=== PATIENT | female | born 1945 | race Caucasian/White ===

== ENCOUNTER 2016-11-03 09:31 | Outpatient (CLI) ==
[2016-11-03 12:45] LABS: BASOPHILS % (AUTO) 0.6 % (0.0-3.0); EOSINOPHILS % (AUTO) 0.4 % (0.0-7.0); HEMATOCRIT 39.4 % (37.0-47.0); HEMOGLOBIN 13.8 g/dl (12.0-16.0); IMMATURE GRANULOCYTE % (AUTO) 0.4 % (0.0-5.0); LYMPHOCYTES # (AUTO) 0.8 K/uL (0.60-3.4); LYMPHOCYTES % (AUTO) 17.2 (10.0-50.0); MEAN CORPUSCULAR HEMOGLOBIN 31.2 pg (27.0-31.0); MEAN CORPUSCULAR VOLUME 89.1 fl (81.0-99.0); MONOCYTES # (AUTO) 0.4 K/uL (0.4-2.0); MONOCYTES % (AUTO) 7.7 (0-10); NEUTROPHILS # (AUTO) 3.6 K/ul (2.0-6.9); NEUTROPHILS % (AUTO) 73.7; PLATELET COUNT 280 10^3/uL (140-440); RED BLOOD COUNT 4.42 10^6/ul (4.20-5.40); WHITE BLOOD COUNT 4.83 K/ul (4.6-10.2)
[2016-11-03 13:13] LABS: ALBUMIN 3.6 g/dL (3.4-5.0); ALBUMIN/GLOBULIN RATIO 1.2; ANION GAP 15.4; BILIRUBIN,TOTAL 0.45 mg/dL (0.00-1.20); BUN/CREATININE RATIO 9.09; CALCIUM 9.3 mg/dL (8.2-10.2); CHOL/HDL RATIO 2.1 (4.5-5.5); CREATININE 0.77 mg/dL (0.60-1.30); POTASSIUM 3.4 mmol/L (3.5-5.10); TOTAL PROTEIN 6.6 g/dL (5.8-8.1)
== END 2016-11-03 09:32 | disposition home or self-care (01) ==
LOC: LAB 09:31
PROVIDERS: ATTEND Emergency Medicine
DX: E03.9 Hypothyroidism, unspecified (principal); I10 Essential (primary) hypertension
CPT/HCPCS: 36415; 80053; 80061; 84443; 85025

== ENCOUNTER 2017-02-05 12:27 | Outpatient (CLI) | END 2017-02-05 12:28 | disposition home or self-care (01) | LOC: LAB 12:27 | PROVIDERS: ATTEND Emergency Medicine | DX: E03.9 Hypothyroidism, unspecified (principal) | CPT/HCPCS: 36415; 84443 ==

== ENCOUNTER 2017-05-18 15:03 | Outpatient (CLI) | END 2017-05-18 15:04 | disposition home or self-care (01) | LOC: LAB 15:03 | PROVIDERS: ATTEND Emergency Medicine | DX: E03.9 Hypothyroidism, unspecified (principal); I10 Essential (primary) hypertension; E78.5 Hyperlipidemia, unspecified | CPT/HCPCS: 36415; 80053; 80061; 84443; 85025 ==

== ENCOUNTER 2017-12-16 09:22 | Outpatient (CLI) | END 2017-12-16 09:23 | disposition home or self-care (01) | LOC: RHC-LAB 09:22 | PROVIDERS: ATTEND Emergency Medicine | DX: E03.9 Hypothyroidism, unspecified (principal); I10 Essential (primary) hypertension; M81.0 Age-related osteoporosis without current pathological fracture | CPT/HCPCS: 36415; 80053; 80061; 84443; 85025 ==

== ENCOUNTER 2018-02-19 09:53 | Outpatient (CLI) | END 2018-02-19 09:54 | disposition home or self-care (01) | LOC: RHC-LAB 09:53 | PROVIDERS: ATTEND Nurse Practitioner Family | DX: E03.9 Hypothyroidism, unspecified (principal) | CPT/HCPCS: 36415; 84443 ==

== ENCOUNTER 2018-08-17 07:55 | Outpatient (CLI) | END 2018-08-17 07:56 | disposition home or self-care (01) | LOC: RHC-LAB 07:55 | PROVIDERS: ATTEND Nurse Practitioner Family | DX: G30.1 Alzheimer's disease with late onset (principal); E78.5 Hyperlipidemia, unspecified; E03.9 Hypothyroidism, unspecified | CPT/HCPCS: 36415; 80053; 80061; 84443; 85025 ==

== ENCOUNTER 2018-09-20 08:17 | Outpatient (CLI) | END 2018-09-20 08:18 | disposition home or self-care (01) | LOC: RHC-LAB 08:17 | PROVIDERS: ATTEND Nurse Practitioner Family | DX: E03.9 Hypothyroidism, unspecified (principal) | CPT/HCPCS: 36415; 84443 ==

== ENCOUNTER 2022-10-14 17:22 | Inpatient (IN) ==
--- NOTE | 2022-10-14 17:44 | ED.PDOC ---
General ED Provider: Dr. RAMO REINOSO DO Chief Complaint: Fall Stated Complaint: Tre is a 76 yo F ehre for presumed fall 1 week ago Patient afebrile and vitally stable Hx from EMS, Niece she lives with Patient unable to provide history due to advanced dementia R shoudler and humeruous brusing, R elbow weeping abrasion Family requesting imaging and return home Time Seen by Provider: 10/14/22 17:28 Information Source: Patient Primary Care Provider: ROMIE WALKER APRN Nursing and Triage Documentation Reviewed and Agree: Yes Does patient meet sepsis criteria?: No System Inflammatory Response Syndrome: Not Applicable Sepsis Protocol: For patient's 13 years and over: Temp is 96.8 and below OR 101 and greater Pulse >90 BPM Resp >20/minute Acutely Altered Mental Status Are patient's symptoms suggestive of a new infection, such as: -Pneumonia -Skin, Soft Tissue -Endocarditis -UTI -Bone, Joint Infection -Implantable Device -Acute Abdominal Infection -Wound Infection -Meningitis -Blood Stream Catheter Infection -Unknown Review of Systems Review Of Systems Constitutional: Reports Other (Unable to obtain due to dementia) All Other Systems: Reviewed and Negative [facility] Medical History Hyperlipidemia E78.5 - Hyperlipidemia, unspecified (ICD-10) Hypertension I10 - Essential (primary) hypertension (ICD-10) Hypothyroidism E03.9 - Hypothyroidism, unspecified (ICD-10) Social History Smoking and tobacco status: Former smoker Tobacco: How many years used: 20 Passive smoking exposure: Yes How long ago did patient quit smoking: approx 30 years Second hand smoke exposure: Yes Smoking risk assessment performed: No Alcohol intake: never Counseling given: No Substance use type: does not use Mireya/adventist: None Special mireya needs: No Agree to transfusion: Yes Adopted: Yes Caregiver/support person: Yes Foster care: No Household members: family Housing: house Highest education level completed: high school graduate Financial difficulty paying for basics: not applicable service: No penitentiary: No Current occupational status: retired Pets and animals: Yes History of recent travel: No Sexually active: No Do you think of yourself as: straight/heterosexual Current gender identity: female Seatbelt use: always Helmet use: No Drives intoxicated or rides with intoxicated courier delivery driver: No Water heater temperature set < 120 degrees: Yes Working smoke detector in home: Yes Fire extinguisher in home: Yes Carbon monoxide detector in home: Yes Firearms in home: Yes Surgical History History of endoscopic gastrointestinal surgery Z98.890 - Other specified postprocedural states (ICD-10) History of musculoskeletal system surgery Z98.890 - Other specified postprocedural states (ICD-10) History of tubal ligation Z98.51 - Tubal ligation status (ICD-10) Status post cholecystectomy Z90.49 - Acquired absence of other specified parts of digestive tract (ICD- 10) Female Reproductive History Menstrual Hx Hysterectomy: Yes Hx Tubal Ligation: No Physical Exam Physical Exam Appearance: Reports Well-appearing, Well-nourished and Obese Ill-appearing: Not Applicable Pain Distress: Not Applicable Eyes: Reports GEOFF, EOMI, Conjunctiva clear and Other (No hyphema) ENT: Reports Ears normal, Nose normal and Other (No septal hematoma) Neck: Supple Respiratory: Reports Airway patent and Breath sounds clear; Denies Crackles or Rhonchi Cardiovascular: Reports RRR and Pulses normal GI/: Reports Soft, Nontender and Other (central abdominal obeisty) Musculoskeletal: Reports Normal strength and Other (R shoulder decreased arom/prom due to pain, radial aa 2+/3 BL) Skin: Reports Warm, Dry and Other (eccymosis to R hsoulder and humerous, R lateral elbow with weeping abrasion) Neurological: Reports Sensation intact and Motor intact Psychiatric: Reports Other (unable to assess due to dementia) Interpretation Radiology Interpretation Radiology Interpretation By: ED Physician Radiology Results: Negative Exam Interpreted: Other (R elbow) Xray Comments: No gross fracture or dislocation Radiology Interpretation By: ED Physician Radiology Results: Positive Exam Interpreted: Other (R shoulder) Xray Comments: surgical neck fracture noted Critical Care Note Critical Care Note Total Critical Care Time (mins): 35 Course Course 10/14/22 17:40 10/14/22 17:40 Orders, Labs, Meds: Lab Review 10/14/22 10/14/22 17:35 17:40 WBC 8.45 RBC 3.24 L Hgb 9.7 L Hct 28.4 L MCV 87.7 MCH 29.9 MCHC 34.2 RDW Coeff of Valdemar 13.0 Plt Count 229 Immature Gran % (Auto) 0.7 Neut % (Auto) 85.1 H Lymph % (Auto) 4.7 L Adams % (Auto) 9.5 Eos % (Auto) 0.0 Baso % (Auto) 0.0 Neut # (Auto) 7.2 H Lymph # (Auto) 0.4 L Adams # (Auto) 0.8 Eos # (Auto) 0.0 Baso # (Auto) 0.0 Immature Gran # (Auto) 0.1 Hypochromasia 1+ Anisocytosis 2+ Microcytosis 1+ Sodium 134.7 Potassium 3.07 L Chloride 100.9 Carbon Dioxide 28.6 Anion Gap 8.27 BUN 18.1 H Creatinine 0.50 L Estimated GFR (MDRD) 119.00 BUN/Creatinine Ratio 36.20 Glucose 99.5 Lactic Acid 0.75 Calcium 8.11 L Total Bilirubin 0.86 AST 26.2 ALT 15.5 Alkaline Phosphatase 75.4 Total Protein 6.52 Albumin 3.56 Globulin 2.96 Albumin/Globulin Ratio 1.20 TSH 2.340 Free T4 1.49 Urine Color Yellow Urine Clarity Clear Urine pH 6.5 Ur Specific Crandall >=1.030 Urine Protein 1+ H Urine Glucose (UA) Negative Urine Ketones Negative Urine Blood Negative Urine Nitrite Negative Urine Bilirubin Negative Urine Urobilinogen 0.2 Ur Leukocyte Esterase Negative Ur Squamous Epith Cells Not Reportable Urine Mucus 1+ Orders Category Date Time Status OBSERVATION [PLACE PATIENT OBSERVATION] .TO [facility] ADMISSION 10/14/22 20:10 Active (MONITORED BED) NPO REMINDER: IMAGING ONCE CARE 10/14/22 17:29 Completed STRAIGHT CATH INSERTION ONCE CARE 10/14/22 17:28 Active TELEMETRY MONITORING TELE CARE 10/14/22 20:10 Active REGULAR DIET DIETARY 10/15/22 Breakfast Ordered C collar [ED IMMOBILIZATION] .ONCE EMERGENCY 10/14/22 19:42 Active CODE [ED CODE STATUS] .ONCE EMERGENCY 10/14/22 20:10 Active CBC W/ AUTO DIFF Stat LAB 10/14/22 17:40 Completed CBC W/ AUTO DIFF Stat LAB 10/15/22 05:00 Ordered CMP [COMPREHENSIVE METABOLIC PANEL] Stat LAB 10/14/22 17:40 Completed CMP [COMPREHENSIVE METABOLIC PANEL] Stat LAB 10/15/22 05:00 Ordered FREE T4 (FREE THYROXINE) Stat LAB 10/14/22 17:40 Completed LACTIC ACID Stat LAB 10/14/22 17:40 Completed MAGNESIUM Stat LAB 10/15/22 05:00 Ordered RBC MORPHOLOGY Stat LAB 10/14/22 17:40 Completed THYROID STIMULATING HORMONE Stat LAB 10/14/22 17:40 Completed UA [URINALYSIS C & S IF INDICATED] Stat LAB 10/14/22 17:35 Completed Acetaminophen [Tylenol] Meds 10/14/22 20:18 Ordered 650 mg RC ONCE PRN Enoxaparin Sodium [Lovenox] Meds 10/14/22 20:17 Discontinued 40 mg SUBCUT ONCE STA Fentanyl Citrate/Pf [Sublimaze] Meds 10/14/22 20:16 Discontinued 25 mcg IV ONCE ONE Fentanyl Citrate/Pf [Sublimaze] Meds 10/14/22 20:18 Ordered 25 mcg IVP ONCE PRN Magnesium Sulfate Bag [Magnesium Sulfate 1 gm/100 ml Meds 10/14/22 19:01 Discontinued D5w] 1 gm in 100 ml IV ONCE Ondansetron HCl/Pf [Zofran 4 mg/2 ml] Meds 10/14/22 20:18 Ordered 4 mg IVP PRN PRN Potassium Chloride in 0.9%NaCl [Sodium Chloride 0.9%- Meds 10/14/22 19:01 Active KCl 40Meq] 1,000 ml IV 250 mls/hr CT CERVICAL SPINE W/O CONTRAST Stat RADS 10/14/22 17:[address] CHEST PE PROTOCOL Stat RADS 10/14/22 17:[address] HEAD W/O CONTRAST Stat RADS 10/14/22 17:28 Completed ELBOW, RIGHT MIN 3 VIEWS Stat RADS 10/14/22 17:28 Completed SHOULDER, RIGHT MIN 2V Stat RADS 10/14/22 17:28 Completed Medications Generic Name Dose Route Start Last Admin Trade Name Freq PRN Reason Stop Dose Admin Acetaminophen 650 mg 10/14/22 20:18 Acetaminophen 650 Mg Supp.Rect RC ONCE PRN pain Fentanyl Citrate 25 mcg 10/14/22 20:18 Fentanyl 50 Mcg/Ml Sdv IVP ONCE PRN pain Potassium Chloride/Sodium Chloride 1,000 mls @ 250 mls/hr 10/14/22 19:01 10/14/22 19:12 Sodium Chloride 0.9%-Kcl 40meq IV 10/14/22 23:00 250 mls/hr .Q4H STA Administration Ondansetron HCl 4 mg 10/14/22 20:18 Ondansetron Hcl/Pf 4 Mg/2 Ml Sdv IVP PRN PRN pain Discontinued Medications Generic Name Dose Route Start Last Admin Trade Name Freq PRN Reason Stop Dose Admin Enoxaparin Sodium 40 mg 10/14/22 20:17 Enoxaparin Sodium 40 Mg/0.4 Ml Syr SUBCUT 10/14/22 20:18 ONCE STA Fentanyl Citrate 25 mcg 10/14/22 20:16 Fentanyl 50 Mcg/Ml Sdv IV 10/14/22 20:17 ONCE ONE Magnesium Sulfate/Dextrose 1 gm in 100 mls @ 100 mls/hr 10/14/22 19:01 10/14/22 19:12 Magnesium Sulfate 1 Gm/100 Ml D5w IV 10/14/22 20:00 100 mls/hr ONCE ONE Administration Vital Signs: Temp Pulse Resp BP Pulse Ox 10/14/22 17:26 99.0 F 85 16 148/74 H 93 L MDM: Patient is a 76 yo F here for presumed fall and bruising to R shoulder and arm Patient afebrile and vitally stable Hx from daughter and EMS chart review by me Exam concerning for bruising and pain to R shoulder Consults to Radiology and hospitalist I discussed Patients fall, R closed impacted humerus fracture, unstable nondisplaced C2 fracture, old R wrist fractures and chronic incidental findings from imaging After risks benefits and alternatives discussion daughter elects DNR/DNI and admission for low potassium, pain control and SNF placement if possible She understands the C spine fracture is life threatening, although no bleeding and non displaced and could be older, daughter (POA) has goals for comfort in care, she does not want mother going through the stress of hospital transfer, surgery, she has end stage dementia it will upset her and she does not want her to have surgery due to the burden of healing and stress mother will go through Patient to be admitted to Hospitalist team WDX: Fall, C2 pedicle Fx BL, R impacted humerus fracture, incidental old chronic fractures, hypokalemia acute condition high complexity DDX: I considered shock, sepsis, non accidental trauma but these are less likely SDOH:patient insured with PCP and family support Daughter would like conservative comfort care, avoiding surgery and options for SNF placement if too weak or injured to return home We discussed all findings Patient admitted stable Daughter does not want arm splinted or C collar after seeing mother struggle to rip them off She knows her mother may get worse without appropriate care for these traumatic injuries, but I agree she is a poor surgical candidate and we will honor the families wishes. Discharge Plan Discharge Patient Disposition: PLACED OBSERVATION Discharge Problem: Fall, Dementia, Fracture of right shoulder, Closed fracture of C2 vertebra, Acute hypokalemia Did you review [place] SCARR[place] for ALL controlled substances?: Not Applicable ED Provider: RAMO REINOSO Condition: Serious Physician Progress Note: []
[2022-10-14 17:48] LABS: HEMATOCRIT 28.4 % (37.0-47.0); HEMOGLOBIN 9.7 g/dl (12.0-16.0); IMMATURE GRANULOCYTE # (AUTO) 0.1 (0.0-1.0); IMMATURE GRANULOCYTE % (AUTO) 0.7 % (0.0-5.0); LYMPHOCYTES # (AUTO) 0.4 K/uL (0.60-3.4); LYMPHOCYTES % (AUTO) 4.7 (10.0-50.0); MEAN CORPUSCULAR HEMOGLOBIN 29.9 pg (27.0-31.0); MEAN CORPUSCULAR HGB CONC 34.2 (31.8-35.4); MEAN CORPUSCULAR VOLUME 87.7 fl (81.0-99.0); MONOCYTES # (AUTO) 0.8 K/uL (0.4-2.0); MONOCYTES % (AUTO) 9.5 (0-10); NEUTROPHILS # (AUTO) 7.2 K/ul (2.0-6.9); NEUTROPHILS % (AUTO) 85.1 % (42.2-75.2); PLATELET COUNT 229 10^3/uL (140-440); RED BLOOD COUNT 3.24 10^6/ul (4.20-5.40); WHITE BLOOD COUNT 8.45 K/ul (4.6-10.2)
[2022-10-14 18:00] LABS: BILIRUBIN,URINE Negative (NEGATIVE); CLARITY,URINE Clear (CLEAR); COLOR,URINE Yellow (YELLOW); GLUCOSE, URINE (UA) Negative (NEGATIVE); KETONES,URINE Negative (NEGATIVE); LEUKOCYTE ESTERASE ,URINE Negative (NEGATIVE); NITRITE,URINE Negative (NEGATIVE); PH,URINE 6.5 (5-9); PROTEIN,URINE 1+ (NEGATIVE); URINE, BLOOD Negative (NEGATIVE); UROBILINOGEN,URINE 0.2 (0.2)
[2022-10-14 18:03] LABS: ALANINE AMINOTRANSFERASE 15.5 U/L (0-35); ALBUMIN 3.56 g/dL (3.5-5.0); ALKALINE PHOSPHATASE 75.4 U/L (53-141); ASPARTATE AMINO TRANSFERASE 26.2 U/L (14-36); BILIRUBIN,TOTAL 0.86 mg/dL (0.2-1.3); BLOOD UREA NITROGEN 18.1 mg/dL (7-17); CALCIUM 8.11 mg/dL (8.4-10.2); CARBON DIOXIDE 28.6 mmol/L (22-30.0); CHLORIDE 100.9 mmol/L (98-107); CREATININE 0.5 mg/dL (0.60-1.30); GLUCOSE 99.5 mg/dL (74-106); POTASSIUM 3.07 mmol/L (3.5-5.1); SODIUM 134.7 mmol/L (134.5-145); TOTAL PROTEIN 6.52 g/dL (6.3-8.2)
[2022-10-14 18:05] LABS: MUCUS,URINE 1+ (NOT PRESENT)
[2022-10-14 18:14] LABS: ANISOCYTOSIS 2+ (NOT PRESENT); HYPOCHROMASIA 1+ (NOT PRESENT); MICROCYTOSIS 1+ (NOT PRESENT)
--- NOTE | 2022-10-14 18:14 | DI ---
EXAM: RIGHT SHOULDER THREE VIEWS HISTORY: Fall COMPARISON: Right shoulder 07/14/2022 FINDINGS: There is stable widening of the AC joint. There is an acute surgical neck fracture which is mildly impacted. Severe degenerative changes noted about the glenohumeral joint. Several linear bony bodies lateral to the acromion may represent avulsion fractures IMPRESSION: Impacted surgical neck fracture with severe degenerative changes as described.
--- NOTE | 2022-10-14 18:16 | DI ---
EXAM: RIGHT ELBOW FOUR VIEWS HISTORY: Fall COMPARISON: None. FINDINGS: There is no acute fracture, dislocation or joint effusion There is questionable subacute distal radial fracture which is incompletely visualized. IMPRESSION: No acute elbow fracture. Questionable subacute distal radial fracture
[2022-10-14 18:34] LABS: THYROID STIMULATING HORMONE 2.34 uIU/L (0.465-4.68)
[2022-10-14] MEDS ORDERED: SODIUM CHLORIDE 0.9%-KCL 40MEQ 1,000 ML IV STA (19:01)
[2022-10-14] MEDS ORDERED: MAGNESIUM SULFATE 1 GM/100 ML D5W 1 GM/100 ML BAG IV ONE (19:01)
--- NOTE | 2022-10-14 19:31 | CT ---
EXAM: CT OF THE HEAD WITHOUT CONTRAST. HISTORY: Fall. Dementia. COMPARISON: 08/10/2020 TECHNIQUE: Contiguous axial images at 5 mm intervals were obtained from the base of the skull to the vertex of the calvarium. No contrast was given. FINDINGS: Extra-axial spaces: The CSF contiaing spaces are diffusely enlarged consistent with atrophy.There ar e no extraaxial fluid collections. Hemorrhage: None Cerebral Parenchyma: There are hypodensities in the periventricular white matter and deep white matte r. These findings are non-specific but can be seen with chronic ischemic changes from small vessel d isease.Zhu-white differentiation is normal. Cerebellum: Mild atrophic changes.. Masses/Mass effect: None. There is no midline shift. Vasculature: Calcifications are seen in the carotid and vertebral arteries. Osseus Structures: There is sclerosis of the mastoid air cells right greater left. Soft tissues/Sinuses: Normal. IMPRESSION: 1. Chronic age related changes. 2. No acute intracranial hemorrhage. All CT scans are performed using dose optimization techniques as appropriate to the performed exam an d include at least one of the following: Automated exposure control, adjustment of the mA and/or kV according t o size, and the use of iterative reconstruction technique.
--- NOTE | 2022-10-14 19:48 | CT ---
EXAM: CTA CHEST HISTORY: Fall with right lateral bruising CT scan chest 08/10/2020 None. FINDINGS: Postcontrast helical imaging was obtained through the thorax utilizing 2.5-mm collimation. Sagittal and coronal reconstructions were imaged reviewed. 3-D volume rendered images are submitte d.. The thoracic inlet is unremarkable. The cardiac silhouette is enlarged without pericardial effus ion. There is coronary artery calcification. There is no hilar or mediastinal lymphadenopathy. The re is no evidence of pulmonary embolus. Bibasilar atelectasis. Stable wedge compression deformity a t T10 with retropulsion. Stable right adrenal mass measuring 8.6 x 3.6 cm.. There is diverticulosis without diverticulitis. There is a comminuted displaced surgical neck fracture on the right. Likel y healing fracture involving the body of the scapula on the right. IMPRESSION: Stable cardiomegaly. No evidence of pulmonary embolus. Bibasilar atelectasis. Stable wedge compression deformity at T10. Right-sided surgical neck fracture of the humerus.. Likely healing fracture involving the body of the right scapula Stable large right adrenal mass. All CT scans are performed using dose optimization techniques as appropriate to the performed exam an d include at least one of the following: Automated exposure control, adjustment of the mA and/or kV according t o size, and the use of iterative reconstruction technique.
--- NOTE | 2022-10-14 19:48 | CT ---
EXAM: CT OF CERVICAL SPINE WITHOUT CONTRAST History: Fall, dementia Comparison: CT 08/10/2020 Technique: Axial scans acquired at 2 mm slice thicknesses. Coronal and sagittal sequence completed FINDINGS Sagittal sequence shows straightening of the cervical curvature. There is 1.7 mm anterolisthesis C2 on C3. There is minimal C4-C5, moderate C5-C6, minimal C6-C7 disc space narrowing. Coronal sequence shows normal alignment. Coronal sequence shows mild levocurvature upper to mid cervical spine. Occipital -atlantal joints a ppear intact. Axial scans shows degenerate change of the facet joints There are minimally displaced fractures of the right pedicle and left pedicle of C2, axial image 27, series 3 Multilevel posterior disc bulge osteophyte. Central spinal canal stenosis most severe C4-C5 and C5-C 6 level, stable compared prior exam. Multilevel chronic neural foraminal stenosis. Moderate to severe bilateral neural foraminal stenosis C4-C5 and C5-C6 level, stable compared prior exam. Impression 1. Multilevel degenerate changes of facet joints with multilevel foraminal stenosis most severe C4-C 5 and C5-C6 level. 2. Central spinal canal stenosis C4-C5 and C5-C6 level. 3. Interval change with minimally displaced fracture of the right pedicle and left pedicle of C2, be st defined on axial image 27, series 3. There is no severe prevertebral soft tissue swelling. No o bvious acute disc protrusion or hematomyelia. The facet joint alignment appears normal. Results of CT findings were discussed by phone at 7:40 p.m. with ER staff, Dr. Chu All CT scans are performed using dose optimization techniques as appropriate to the performed exam an d include at least one of the following: Automated exposure control, adjustment of the mA and/or kV according t o size, and the use of iterative reconstruction technique.
[2022-10-14] MEDS ORDERED: SUBLIMAZE IV ONE (20:16)
[2022-10-14] MEDS ORDERED: LOVENOX SUBCUT STA (20:17)
[2022-10-14] MEDS ORDERED: TYLENOL RC PRN (20:18)
[2022-10-14] MEDS ORDERED: ZOFRAN 4 MG/2 ML IVP PRN ×2 (20:18→22:29)
[2022-10-14] MEDS ORDERED: SUBLIMAZE IVP PRN (20:18)
[2022-10-14 21:19] VITALS: BMI 23.8
[2022-10-14] MEDS ORDERED: MORPHINE 2 MG/ML SYRINGE IVP PRN (22:27)
[2022-10-14] MEDS ORDERED: FLEXERIL PO PRN (22:27)
[2022-10-14] MEDS ORDERED: MOBIC PO PRN (23:15)
[2022-10-14] MEDS ORDERED: ZOCOR PO SCH (23:30)
[2022-10-14] MEDS ORDERED: DRISDOL PO SCH (23:30)
[2022-10-14] MEDS: DESYREL PO PRN (23:47)
[2022-10-15 05:08] LABS: BASOPHILS % (AUTO) 0.3 % (0.0-3.0); EOSINOPHILS % (AUTO) 0.1 % (0.0-7.0); HEMATOCRIT 27.2 % (37.0-47.0); HEMOGLOBIN 9.1 g/dl (12.0-16.0); IMMATURE GRANULOCYTE # (AUTO) 0.1 (0.0-1.0); IMMATURE GRANULOCYTE % (AUTO) 0.7 % (0.0-5.0); LYMPHOCYTES # (AUTO) 0.4 K/uL (0.60-3.4); LYMPHOCYTES % (AUTO) 4.9 (10.0-50.0); MEAN CORPUSCULAR HEMOGLOBIN 29.6 pg (27.0-31.0); MEAN CORPUSCULAR HGB CONC 33.5 (31.8-35.4); MEAN CORPUSCULAR VOLUME 88.6 fl (81.0-99.0); MONOCYTES # (AUTO) 0.8 K/uL (0.4-2.0); MONOCYTES % (AUTO) 10.3 (0-10); NEUTROPHILS # (AUTO) 6.2 K/ul (2.0-6.9); NEUTROPHILS % (AUTO) 83.7 % (42.2-75.2); PLATELET COUNT 224 10^3/uL (140-440); RED BLOOD COUNT 3.07 10^6/ul (4.20-5.40)
[2022-10-15 05:22] LABS: ALANINE AMINOTRANSFERASE 14.8 U/L (0-35); ALBUMIN 3.31 g/dL (3.5-5.0); ALKALINE PHOSPHATASE 72.7 U/L (53-141); ASPARTATE AMINO TRANSFERASE 25.2 U/L (14-36); BILIRUBIN,TOTAL 0.79 mg/dL (0.2-1.3); BLOOD UREA NITROGEN 16.5 mg/dL (7-17); CALCIUM 7.99 mg/dL (8.4-10.2); CARBON DIOXIDE 26.9 mmol/L (22-30.0); CHLORIDE 104.7 mmol/L (98-107); CREATININE 0.48 mg/dL (0.60-1.30); GLUCOSE 98.7 mg/dL (74-106); MAGNESIUM 2.47 mg/dL (1.6-2.3); POTASSIUM 3.16 mmol/L (3.5-5.1); SODIUM 135.2 mmol/L (134.5-145); TOTAL PROTEIN 6.2 g/dL (6.3-8.2)
[2022-10-15] MEDS: SYNTHROID PO SCH (05:36)
[2022-10-15] MEDS ORDERED: ZYRTEC PO SCH (09:00)
[2022-10-15] MEDS: HYDROCHLOROTHIAZIDE PO SCH (09:37)
[2022-10-15] MEDS: ZOLOFT PO SCH ×2 (09:39→09:40)
[2022-10-15] MEDS: PROTONIX PO SCH (09:40)
[2022-10-15] MEDS: K-DUR PO SCH ×2 (09:40→19:00)
[2022-10-15] MEDS: BUSPAR PO SCH ×3 (09:40→20:31)
--- NOTE | 2022-10-15 10:33 | PCM ---
Date of Service Date Seen by Provider: 10/15/22 Time Seen by Provider: 09:00 Admit Day/Time Admission Date: 10/14/22 Reason for Admission Chief Complaint: HYPOKALEMIA Hospital Provider Hospital Provider: CHRISTEL ALCARAZ, [facility] [place] Primary Care Physician: ROMIE WALKER APRN History of Present Illness History of Present Illness: 76 yo female with pmh of dementia presented to the ER via EMS from home following a fall. Daughter reports that patient has been falling frequently over the last couple weeks. The last fall was over the weekend in the middle of the night and the patient was found in the floor. She was not brought to the hospital at that time and was not complaining of pain. Over the last couple days, the patient's pain has worsening and bruising developed to the R arm and shoulder. She was found to have a R arm impacted surgical neck fracture as well as a C2 fracture. Daughter reported to ER provider that patient is not a surgical candidate and did not wish for anything to be done. She is a DNR/DNI. Daughter also was instructed that the arm needed splinted and the neck required a C-collar. She denied use of both devices due to comfort of the patient and inability to tolerate the devices due to her dementia. Daughter was explained the risks and she is understanding. At this time, daughter is requesting senior living placement due to lack of ability to care for the patient safely at home. Due to pmh of dementia, unable to obtain HPI. Patient does voice complaints of "hurting all over" Case Discussed With Case Discussed With: Patient's case was discussed with the ER Physicians, Dr. Chu. [facility] Medical History (Updated 10/15/22 @ 10:39 by CHRISTEL ALCARAZ) Allergic rhinitis J30.9 - Allergic rhinitis, unspecified (ICD-10) Anxiety F41.9 - Anxiety disorder, unspecified (ICD-10) Arthralgia M25.50 - Pain in unspecified joint (ICD-10) Closed fracture of C2 vertebra S12.100A - Unspecified displaced fracture of second cervical vertebra, initial encounter for closed fracture (ICD-10) Dementia F03.90 - Unspecified dementia, unspecified severity, without behavioral disturbance, psychotic disturbance, mood disturbance, and anxiety (ICD-10) GERD (gastroesophageal reflux disease) (02/19/18) K21.9 - Gastro-esophageal reflux disease without esophagitis (ICD-10) Hyperlipidemia E78.5 - Hyperlipidemia, unspecified (ICD-10) Hypertension I10 - Essential (primary) hypertension (ICD-10) Hypothyroidism E03.9 - Hypothyroidism, unspecified (ICD-10) Insomnia G47.00 - Insomnia, unspecified (ICD-10) Osteoporosis M81.0 - Age-related osteoporosis without current pathological fracture (ICD-10) Vitamin D deficiency E55.9 - Vitamin D deficiency, unspecified (ICD-10) Surgical History History of endoscopic gastrointestinal surgery Z98.890 - Other specified postprocedural states (ICD-10) History of musculoskeletal system surgery Z98.890 - Other specified postprocedural states (ICD-10) History of tubal ligation Z98.51 - Tubal ligation status (ICD-10) Status post cholecystectomy Z90.49 - Acquired absence of other specified parts of digestive tract (ICD- 10) Family History Other No known health problems Social History Smoking and tobacco status: Former smoker Tobacco: How many years used: 20 Passive smoking exposure: Yes How long ago did patient quit smoking: approx 30 years Second hand smoke exposure: Yes Smoking risk assessment performed: No Alcohol intake: never Counseling given: No Substance use type: does not use Mireya/gnosticism: None Special mireya needs: No Agree to transfusion: Yes Adopted: Yes Caregiver/support person: Yes Foster care: No Household members: family Housing: house Highest education level completed: high school graduate Financial difficulty paying for basics: not applicable service: No senior care: No Current occupational status: retired Pets and animals: Yes History of recent travel: No Sexually active: No Do you think of yourself as: straight/heterosexual Current gender identity: female Seatbelt use: always Helmet use: No Drives intoxicated or rides with intoxicated courtesy car driver: No Water heater temperature set < 120 degrees: Yes Working smoke detector in home: Yes Fire extinguisher in home: Yes Carbon monoxide detector in home: Yes Firearms in home: Yes Allergies Allergies Allergy/AdvReac Type Severity Reaction Status Date / Time No Known Allergies Allergy Verified 10/14/22 17:33 Current Medications Home Medications blood pressure monitor #1 ea 04/27/20 [Rx Confirmed 10/14/22 Last Taken Unknown] ibuprofen 200 mg tablet 200 mg PO Q6H PRN Pain 07/22/21 [History Confirmed 10/14/22 Last Taken Unknown] cetirizine 10 mg capsule (Zyrtec) 10 mg PO QDAY #90 caps 02/03/22 [Rx Confirmed 10/14/22 Last Taken Unknown] buspirone 10 mg tablet See Rx Instructions .Route .COMPLEX #90 tabs 06/23/22 [Rx Confirmed 10/14/22 Last Taken Unknown] levothyroxine 88 mcg tablet See Rx Instructions .Route .COMPLEX #90 tabs 06/23/22 [Rx Confirmed 10/14/22 Last Taken Unknown] meloxicam 7.5 mg tablet 7.5 mg PO QDAY PRN arthritis #90 tabs 06/23/22 [Rx Confirmed 10/14/22 Last Taken Unknown] ergocalciferol (vitamin D2) 1,250 mcg (50,000 unit) capsule 1,250 mcg PO QWEEK vitamin D deficiency 1 month #5 caps 10/07/22 [Rx Confirmed 10/14/22 Last Taken Unknown] hydrochlorothiazide 25 mg tablet 12.5 mg PO QAM 90 days #45 tabs 10/07/22 [Rx Confirmed 10/14/22 Last Taken Unknown] pantoprazole 40 mg tablet,delayed release See Rx Instructions .Route .COMPLEX #90 tabs 10/07/22 [Rx Confirmed 10/14/22 Last Taken Unknown] potassium chloride 20 mEq tablet,extended release 20 meq PO BID 90 days #180 tabs 10/07/22 [Rx Confirmed 10/14/22 Last Taken Unknown] sertraline 100 mg tablet (Zoloft) 100 mg PO QDAY #90 tabs 10/07/22 [Rx Confirmed 10/14/22 Last Taken Unknown] sertraline 50 mg tablet (Zoloft) 50 mg PO QDAY #90 tabs 10/07/22 [Rx Confirmed 10/14/22 Last Taken Unknown] simvastatin 20 mg tablet See Rx Instructions .Route .COMPLEX #90 tabs 10/07/22 [Rx Confirmed 10/14/22 Last Taken Unknown] trazodone 50 mg tablet 25 mg PO QHS PRN insomnia 30 days #15 tabs 10/07/22 [Rx Confirmed 10/14/22 Last Taken Unknown] Home Acetaminophen (Acetaminophen 325 Mg Tablet) 650 mg PO Q4H PRN PRN Reason: Mild Pain Buspirone HCl (Buspirone Hcl 10 Mg Tablet) 10 mg PO TID [facility] Last Admin: 10/15/22 09:40 Dose: 10 mg Cetirizine HCl (Cetirizine Hcl 5 Mg/5 Ml Ud Cup) 10 mg PO DAILY [facility] Last Admin: 10/15/22 09:42 Dose: Not Given Cyclobenzaprine HCl (Cyclobenzaprine Hcl 10 Mg Tablet) 5 mg PO TID PRN PRN Reason: Spasms Ergocalciferol (Ergocalciferol (Vitamin D2) 50,000 Unit Capsule) 50,000 unit PO QWEEK [facility] Hydrochlorothiazide (Hydrochlorothiazide 25 Mg Tablet) 12.5 mg PO QAM [facility] Last Admin: 10/15/22 09:37 Dose: 12.5 mg Levothyroxine Sodium (Levothyroxine Sodium 88 Mcg Tablet) 88 mcg PO 0630 [facility] Last Admin: 10/15/22 05:36 Dose: 88 mcg Meloxicam (Meloxicam 7.5 Mg Tablet) 7.5 mg PO DAILY PRN PRN Reason: JOINT PAIN Morphine Sulfate (Morphine Sulfate 2 Mg/Ml Syringe) 2 mg IVP Q6H PRN PRN Reason: MODERATE PAIN Ondansetron HCl (Ondansetron Hcl/Pf 4 Mg/2 Ml Sdv) 4 mg IVP Q6H PRN PRN Reason: Nausea / Vomiting Pantoprazole Sodium (Pantoprazole Sodium 40 Mg Tablet.Dr) 40 mg PO QDAC [facility] Last Admin: 10/15/22 09:40 Dose: 40 mg Potassium Chloride (Potassium Chloride 20 Meq Tab) 20 meq PO BIDWM [facility] Last Admin: 10/15/22 09:40 Dose: 20 meq Sertraline HCl (Sertraline Hcl 50 Mg Tablet) 100 mg PO DAILY [facility] Last Admin: 10/15/22 09:39 Dose: 100 mg Sertraline HCl (Sertraline Hcl 50 Mg Tablet) 50 mg PO DAILY [facility] Last Admin: 10/15/22 09:40 Dose: 50 mg Simvastatin (Simvastatin 10 Mg Tablet) 20 mg PO BEDTIME [facility] Sodium Chloride (0.9% Sodium Chloride 10 Ml Disp.Syrin) 1 syr IVF Q8HR GIOVANNY Trazodone HCl (Trazodone Hcl 50 Mg Tablet) 25 mg PO BEDTIME PRN PRN Reason: Insomnia Last Admin: 10/14/22 23:47 Dose: 25 mg Discontinued Medications Acetaminophen (Acetaminophen 650 Mg Supp.Rect) 650 mg RC ONCE PRN PRN Reason: pain Enoxaparin Sodium (Enoxaparin Sodium 40 Mg/0.4 Ml Syr) 40 mg SUBCUT ONCE STA Stop: 10/14/22 20:18 Last Admin: 10/14/22 20:27 Dose: 40 mg Fentanyl Citrate (Fentanyl 50 Mcg/Ml Sdv) 25 mcg IV ONCE ONE Stop: 10/14/22 20:17 Last Admin: 10/14/22 20:27 Dose: 25 mcg Fentanyl Citrate (Fentanyl 50 Mcg/Ml Sdv) 25 mcg IVP ONCE PRN PRN Reason: pain Magnesium Sulfate/Dextrose (Magnesium Sulfate 1 Gm/100 Ml D5w) 1 gm in 100 mls @ 100 mls/hr IV ONCE ONE Stop: 10/14/22 20:00 Last Admin: 10/14/22 19:12 Dose: 100 mls/hr Potassium Chloride/Sodium Chloride (Sodium Chloride 0.9%-Kcl 40meq) 1,000 mls @ 250 mls/hr IV .Q4H STA Stop: 10/14/22 23:00 Last Admin: 10/14/22 19:12 Dose: 250 mls/hr Ondansetron HCl (Ondansetron Hcl/Pf 4 Mg/2 Ml Sdv) 4 mg IVP PRN PRN PRN Reason: pain Simvastatin (Simvastatin 10 Mg Tablet) 10 mg PO BEDTIME GIOVANNY Last Admin: 10/14/22 23:47 Dose: 10 mg Review of Systems Constitutional: Denies No symptoms, Fever, Fatigue, Recent Weight Loss, Recent Weight Gain, Chills, Weakness, Sweats, Loss of appetite or Other Head: Denies Normocephalic, Atraumatic or Other Eyes: Denies No symptoms, Blurred vision, Double-vision, Vision Changes, Loss of Vision, Discharge, Itching, Pain, Redness, Photophobia or Other Ears: Denies No symptoms, Pain, Bleeding, Drainage, Ringing, Hearing loss or Other Nose: Denies No symptoms, Bleeding, Post Nasal Drip, Congestion, Discharge or Other Mouth: Denies No symptoms, Sores, Bleeding, Pain, Swelling or Other Throat: Denies No symptoms, Sore Throat, Difficulty Swallowing, Pain, Swelling, Voice change or Other Cardiovascular: Denies No symptoms, Chest pain, Chest Pressure, Irregular Heartbeat, Heart Murmur, High Blood Pressure, Claudication Pain, Varicose Veins, Left arm pain, Diaphoresis, PND, Orthopnea, Edema, Palpitations, Syncope or Other Respiratory: Denies No symptoms, Cough, Shortness of air, Hemoptysis, Night Sweats, Wake Coughing at Night, Wake Choking at Night, Wheeze, Pain with breathing or Other Gastrointestinal: Denies No symptoms, Nausea, Vomiting, Diarrhea, Hematemesis, Hematochezia, Constipation, Vomit Coffee Ground Material, Heartburn, Reflux, Black Tarry Stools, Hemorrhoids, Abdominal pain, Melena, Dysphagia or Other Genitourinary: Denies No Symptoms, Dysuria, Frequency, Nocturia, Incontinent Bowel, Incontinent Bladder, Hematuria, Incontinence, Flank Pain, Vaginal Discharge, Abnormal Bleeding, Pelvic Pain or Other Musculoskeletal: Denies No symptoms, Joint Stiffness, Muscle Pain, Neck Pain, Back Pain, Swelling in joints or Other Dermatologic: Denies Rashes, Skin Changes or Other Endocrine: Denies No symptoms, Cold intolerance, Heat intolerance, Excessive thirst, Flushing, Fingernail Changes, Hair Changes, Weight changes, Excessive hunger, Polyuria or Other Hematology: Denies No symptoms, Easy bleeding, Anemia, Clotting Disorders, Easy bruising, Swollen glands or Other Immunology: Denies No symptoms, Skin Sensitivity, Latex Allergy, Latex Sensitivity, Hives, Itching, Frequent infections, Difficulty healing or Other Neurological: Denies No symptoms, Headache, Dizziness, Syncope, Loss of Conciousness, Memory Loss, Seizure, Numbness, Weakness, Speech difficulty, Problems with walking, Tremor, Fainting or Other Psychiatric: Denies No symptoms, Depression, Anxiety, Sleeplessness, Hopelessness, Suicidal, Hallucinations or Other Physical examination Most Recent Vital Signs: Most Recent Vital Signs Temperature 96.9 F L 10/15/22 06:00 Temperature Source Temporal Artery Scan 10/15/22 06:00 Temperature Source Infrared 10/14/22 17:26 Pulse Rate 71 10/15/22 06:00 Respiratory Rate 20 10/15/22 06:00 Blood Pressure 132/82 10/15/22 06:00 Blood Pressure Mean 98 10/15/22 06:00 Blood Pressure Right Arm 144/70 10/14/22 20:53 Blood Pressure Location Right Arm 10/15/22 06:00 Blood Pressure Position Supine 10/15/22 06:00 O2 Sat by Pulse Oximetry 96 10/15/22 06:00 Oxygen Delivery Method Room Air 10/15/22 06:00 Height 5 ft 5 in 10/14/22 20:53 Weight 143 lb 1.6 oz 10/14/22 20:53 Telemetry Type Bedside Monitor 10/15/22 07:00 Telemetry Monitoring Continues 10/15/22 07:00 Telemetry Heart Rate 77 10/15/22 07:00 EKG OR Interval 0.17 10/15/22 07:00 EKG QRS Interval 0.06 10/15/22 07:00 Telemetry Strip Reading NSR 10/15/22 07:00 Appearance: Positive Well-appearing, Well-nourished and No Apparent Distress Skin: Positive Warm, Good Turgor, Ecchymosis (diffuse to the R arm extending from the shoulder to the forearm) and Other (skin tear to the R elbow, no drainage, erythema, or swelling) HEENT: Positive Normocephalic Neck: Positive Supple and Midline Trachea Chest/Lungs: Positive Symmetrical With Equal Breath Sounds, Clear to Auscultation Bilaterally and Good Air Movement all 4 Lung Draper Heart: Positive RRR and Pulses Normal GI/: Positive Soft, Nontender, Bowel Sounds Normal and No Distention Musculoskeletal: Positive Not Examined Extremities: Positive Intact Peripheral Pulses and Stable Joints Without Laxity Neurological: Positive Alert and Disorinted Labs This Visit Labs This Visit: Labs This Visit 10/14/22 10/14/22 10/15/22 17:35 17:40 05:03 WBC 8.45 7.40 RBC 3.24 L 3.07 L Hgb 9.7 L 9.1 L Hct 28.4 L 27.2 L MCV 87.7 88.6 MCH 29.9 29.6 MCHC 34.2 33.5 RDW Coeff of Valdemar 13.0 13.0 Plt Count 229 224 Immature Gran % (Auto) 0.7 0.7 Neut % (Auto) 85.1 H 83.7 H Lymph % (Auto) 4.7 L 4.9 L [place] % (Auto) 9.5 10.3 H Eos % (Auto) 0.0 0.1 Baso % (Auto) 0.0 0.3 Neut # (Auto) 7.2 H 6.2 Lymph # (Auto) 0.4 L 0.4 L [place] # (Auto) 0.8 0.8 Eos # (Auto) 0.0 0.0 Baso # (Auto) 0.0 0.0 Immature Gran # (Auto) 0.1 0.1 Hypochromasia 1+ Anisocytosis 2+ Microcytosis 1+ Sodium 134.7 135.2 Potassium 3.07 L 3.16 L Chloride 100.9 104.7 Carbon Dioxide 28.6 26.9 Anion Gap 8.27 6.76 BUN 18.1 H 16.5 Creatinine 0.50 L 0.48 L Estimated GFR (MDRD) 119.00 125.00 BUN/Creatinine Ratio 36.20 34.37 Glucose 99.5 98.7 Lactic Acid 0.75 Calcium 8.11 L 7.99 L Magnesium 2.47 H Total Bilirubin 0.86 0.79 AST 26.2 25.2 ALT 15.5 14.8 Alkaline Phosphatase 75.4 72.7 Total Protein 6.52 6.20 L Albumin 3.56 3.31 L Globulin 2.96 2.89 Albumin/Globulin Ratio 1.20 1.14 TSH 2.340 Free T4 1.49 Urine Color Yellow Urine Clarity Clear Urine pH 6.5 Ur Specific [place] >=1.030 Urine Protein 1+ H Urine Glucose (UA) Negative Urine Ketones Negative Urine Blood Negative Urine Nitrite Negative Urine Bilirubin Negative Urine Urobilinogen 0.2 Ur Leukocyte Esterase Negative Ur Squamous Epith Cells Not Reportable Urine Mucus 1+ Imaging Imaging: EXAM: CT OF CERVICAL SPINE WITHOUT CONTRAST Impression 1. Multilevel degenerate changes of facet joints with multilevel foraminal stenosis most severe C4-C5 and C5-C6 level. 2. Central spinal canal stenosis C4-C5 and C5-C6 level. 3. Interval change with minimally displaced fracture of the right pedicle and left pedicle of C2, best defined on axial image 27, series 3. There is no severe prevertebral soft tissue swelling. No obvious acute disc protrusion or hematomyelia. The facet joint alignment appears normal. EXAM: CT OF THE HEAD WITHOUT CONTRAST. IMPRESSION: 1. Chronic age related changes. 2. No acute intracranial hemorrhage. EXAM: RIGHT ELBOW FOUR VIEWS IMPRESSION: No acute elbow fracture. Questionable subacute distal radial fracture EXAM: RIGHT SHOULDER THREE VIEWS IMPRESSION: Impacted surgical neck fracture with severe degenerative changes as described. Review Statement Review Statement: I have independently reviewed and interpreted the labs/EKGs/imaging that were ordered by the ER provider. I have reviewed all outside records that are available currently in our EMR including imaging/notes/labs from previous visits. Plan Plan: 1. Intractable Pain in setting of R impacted surgical neck fracture and C2 fracture - morphine Q6H prn and flexeril TID prn, will adjust if needed, family denied surgical intervention and refuses immobilization devices- comfort measures only, case management to assist with senior living placement 2. Hypokalemia - improving, replace and monitor 3. Hypertension - chronic, stable, continue home medications 4. Hyperlipidemia - chronic, continue home medications 5. Hypothyroidism - chronic, stable, continue home medications 6. GERD - chronic, continue home medications DVT Prophylaxis: Lovenox Time Spent: Greater than 80 minutes spent with patient, 50% of the time spent with this patient was devoted to counseling and coordination of care. [facility]annin minutes spent discussing advance care planning. Disposition: Admit to: Med/surg Inpatient Discussed Plan of Care with Dr. Leela Aguilar. Medications Medication Orders: Medications Ordered Category Date Time Status 0.9 % Sodium Chloride [Saline Flush] Meds 10/15/22 13:00 Active 1 syr IVF Q8HR Acetaminophen [Tylenol] Meds 10/14/22 22:27 Active 650 mg PO Q4H PRN Acetaminophen [Tylenol] Meds 10/14/22 20:18 Active 650 mg RC ONCE PRN Buspirone HCl [Buspar] Meds 10/15/22 09:00 Active 10 mg PO TID Cetirizine HCl [Zyrtec] Meds 10/15/22 09:00 Active 10 mg PO DAILY Cyclobenzaprine HCl [Flexeril] Meds 10/14/22 22:27 Active 5 mg PO TID PRN Ergocalciferol (Vitamin D2) [Drisdol] Meds 10/14/22 23:30 Active 50,000 unit PO QWEEK Hydrochlorothiazide Meds 10/15/22 09:00 Active 12.5 mg PO QAM Levothyroxine Sodium [Synthroid] Meds 10/15/22 06:30 Active 88 mcg PO 0630 Meloxicam [Mobic] Meds 10/14/22 23:15 Active 7.5 mg PO DAILY PRN Morphine Sulfate [Morphine 2 mg/ml Syringe] Meds 10/14/22 22:27 Active 2 mg IVP Q6H PRN Ondansetron HCl/Pf [Zofran 4 mg/2 ml] Meds 10/14/22 22:29 Active 4 mg IVP Q6H PRN Pantoprazole Sodium [Protonix] Meds 10/15/22 09:00 Active 40 mg PO QDAC Potassium Chloride [K-Dur] Meds 10/15/22 09:00 Active 20 meq PO BIDWM Sertraline HCl [Zoloft] Meds 10/15/22 09:00 Active 100 mg PO DAILY Sertraline HCl [Zoloft] Meds 10/15/22 09:00 Active 50 mg PO DAILY Simvastatin [Zocor] Meds 10/15/22 21:00 Active 20 mg PO BEDTIME Trazodone HCl [Desyrel] Meds 10/14/22 23:30 Active 25 mg PO BEDTIME PRN
[2022-10-15] MEDS ORDERED: K-DUR PO ONE (10:50)
[2022-10-15] MEDS: CLARITIN PO SCH (15:22)
[2022-10-15] MEDS: ZOCOR PO SCH (20:31)
[2022-10-15] MEDS: DESYREL PO PRN (20:31)
[2022-10-16 05:04] LABS: BASOPHILS % (AUTO) 0.2 % (0.0-3.0); EOSINOPHILS # (AUTO) 0.1 K/ul (0.0-0.7); EOSINOPHILS % (AUTO) 0.9 % (0.0-7.0); HEMATOCRIT 28.4 % (37.0-47.0); HEMOGLOBIN 9.4 g/dl (12.0-16.0); IMMATURE GRANULOCYTE % (AUTO) 0.6 % (0.0-5.0); LYMPHOCYTES # (AUTO) 0.6 K/uL (0.60-3.4); LYMPHOCYTES % (AUTO) 9.2 (10.0-50.0); MEAN CORPUSCULAR HEMOGLOBIN 30.1 pg (27.0-31.0); MEAN CORPUSCULAR HGB CONC 33.1 (31.8-35.4); MONOCYTES # (AUTO) 0.6 K/uL (0.4-2.0); MONOCYTES % (AUTO) 8.9 (0-10); NEUTROPHILS # (AUTO) 5.1 K/ul (2.0-6.9); NEUTROPHILS % (AUTO) 80.2 % (42.2-75.2); PLATELET COUNT 281 10^3/uL (140-440); RDW COEFFICIENT OF VARIATION 13.2 % (11.6-14.8); RED BLOOD COUNT 3.12 10^6/ul (4.20-5.40); WHITE BLOOD COUNT 6.39 K/ul (4.6-10.2)
[2022-10-16 05:14] LABS: ALANINE AMINOTRANSFERASE 15.4 U/L (0-35); ALBUMIN 2.99 g/dL (3.5-5.0); ASPARTATE AMINO TRANSFERASE 22.4 U/L (14-36); BILIRUBIN,TOTAL 0.58 mg/dL (0.2-1.3); BLOOD UREA NITROGEN 20.1 mg/dL (7-17); CALCIUM 7.58 mg/dL (8.4-10.2); CARBON DIOXIDE 27.1 mmol/L (22-30.0); CHLORIDE 103.2 mmol/L (98-107); CREATININE 0.56 mg/dL (0.60-1.30); GLUCOSE 100.8 mg/dL (74-106); POTASSIUM 3.83 mmol/L (3.5-5.1); SODIUM 132.3 mmol/L (134.5-145); TOTAL PROTEIN 5.79 g/dL (6.3-8.2)
[2022-10-16] MEDS: PROTONIX PO SCH (05:34)
[2022-10-16] MEDS: SYNTHROID PO SCH (05:34)
--- NOTE | 2022-10-16 09:36 | PCM.PROG ---
Date/Time Seen Date Seen by Provider: 10/16/22 Time Seen by Provider: 09:00 Provider Provider[facility] Chief Complaint Chief Complaint: HYPOKALEMIA Subjective Subjective: Reports pain to R arm. No other complaints Objective Appearance: Positive Well-appearing, Well-nourished and No Apparent Distress Chest/Lungs: Positive Symmetrical With Equal Breath Sounds, Clear to Auscultation Bilaterally and Good Air Movement all 4 Lung Draper Heart: Positive RRR and Pulses Normal GI/: Positive Soft, Nontender, Bowel Sounds Normal, No Distention and No Organomegaly Musculoskeletal: Positive Not Examined Neurological: Positive Motor intact, Reflexes Intact, Alert, Disorinted and Other (weakness in strength to R arm, able to move fingers without difficulty, cap refill <3. ) Vital Signs Vital Signs: Vital Signs: Last 24 Hours 10/15/22 10:00 10/15/22 13:00 10/15/22 15:00 Temperature 98.1 F Temperature Source Oral Pulse Rate 74 76 Respiratory Rate 16 20 Blood Pressure 116/60 Blood Pressure Mean 78 Blood Pressure Location Left Arm Blood Pressure Position Sitting O2 Sat by Pulse Oximetry 95 Oxygen Delivery Method Room Air Room Air Telemetry Type Bedside Monitor Telemetry Monitoring Continues Telemetry Heart Rate 63 EKG NJ Interval 0.17 EKG QRS Interval 0.07 Telemetry Strip Reading SR with PAC's 10/15/22 18:00 10/15/22 19:00 10/15/22 22:00 Temperature 98.2 F Temperature Source Oral Pulse Rate 82 77 Respiratory Rate 18 20 Blood Pressure 122/62 149/81 H Blood Pressure Mean 82 103 Blood Pressure Location Left Arm Left Arm Blood Pressure Position Sitting Supine O2 Sat by Pulse Oximetry 95 97 Oxygen Delivery Method Room Air Room Air Telemetry Type Bedside Monitor Telemetry Monitoring Continues Telemetry Heart Rate 83 EKG NJ Interval 0.15 EKG QRS Interval 0.03 L Telemetry Strip Reading SR 10/16/22 01:00 10/16/22 01:33 10/16/22 05:01 Temperature 98.1 F Temperature Source Temporal Artery Scan Pulse Rate 75 70 Respiratory Rate 20 16 Blood Pressure 128/58 L 144/59 H Blood Pressure Mean 81 87 Blood Pressure Location Left Arm Left Arm Blood Pressure Position Supine Supine O2 Sat by Pulse Oximetry 96 93 L Oxygen Delivery Method Room Air Room Air Telemetry Type Bedside Monitor Telemetry Monitoring Continues Telemetry Heart Rate 74 EKG NJ Interval 0.18 EKG QRS Interval 0.03 L Telemetry Strip Reading SR 10/16/22 07:00 Temperature Temperature Source Pulse Rate Respiratory Rate Blood Pressure Blood Pressure Mean Blood Pressure Location Blood Pressure Position O2 Sat by Pulse Oximetry Oxygen Delivery Method Telemetry Type Bedside Monitor Telemetry Monitoring Continues Telemetry Heart Rate 72 EKG NJ Interval 0.12 EKG QRS Interval 0.08 Telemetry Strip Reading SR Lab Results Lab Results: Lab Results: Last 24 Hours 10/16/22 04:30 WBC 6.39 RBC 3.12 L Hgb 9.4 L Hct 28.4 L MCV 91.0 MCH 30.1 MCHC 33.1 RDW Coeff of Valdemar 13.2 Plt Count 281 Immature Gran % (Auto) 0.6 Neut % (Auto) 80.2 H Lymph % (Auto) 9.2 L [place] % (Auto) 8.9 Eos % (Auto) 0.9 Baso % (Auto) 0.2 Neut # (Auto) 5.1 Lymph # (Auto) 0.6 [place] # (Auto) 0.6 Eos # (Auto) 0.1 Baso # (Auto) 0.0 Immature Gran # (Auto) 0.0 Sodium 132.3 L Potassium 3.83 Chloride 103.2 Carbon Dioxide 27.1 Anion Gap 5.83 BUN 20.1 H Creatinine 0.56 L Estimated GFR (MDRD) 105.00 BUN/Creatinine Ratio 35.89 Glucose 100.8 Calcium 7.58 L Total Bilirubin 0.58 AST 22.4 ALT 15.4 Alkaline Phosphatase 77.0 Total Protein 5.79 L Albumin 2.99 L Globulin 2.80 Albumin/Globulin Ratio 1.06 Additional Comments Additional Comments: I have independently reviewed and interpreted the labs/EKGs/imaging ordered during this hospital stay. I have reviewed outside records that are available in our EMR that pertain to medical stay including imaging/notes/labs from previous visits. Active Medications Active Medications: Medications Generic Name Dose Route Start Last Admin Trade Name Freq PRN Reason Stop Dose Admin Acetaminophen 650 mg 10/14/22 22:27 Acetaminophen 325 Mg Tablet PO Q4H PRN Mild Pain Buspirone HCl 10 mg 10/15/22 09:00 10/15/22 20:31 Buspirone Hcl 10 Mg Tablet PO 10 mg TID GIOVANNY Administration Cyclobenzaprine HCl 5 mg 10/14/22 22:27 Cyclobenzaprine Hcl 10 Mg Tablet PO TID PRN Spasms Ergocalciferol 50,000 unit 10/14/22 23:30 Ergocalciferol (Vitamin D2) 50,000 Unit Capsule PO QWEEK GIOVANNY Hydrochlorothiazide 12.5 mg 10/15/22 09:00 10/15/22 09:37 Hydrochlorothiazide 25 Mg Tablet PO 12.5 mg QAM GIOVANNY Administration Levothyroxine Sodium 88 mcg 10/15/22 06:30 10/16/22 05:34 Levothyroxine Sodium 88 Mcg Tablet PO 88 mcg 0630 GIOVANNY Administration Loratadine 10 mg 10/15/22 13:00 10/15/22 15:22 Loratadine 10 Mg Tablet PO 10 mg DAILY GIOVANNY Administration Meloxicam 7.5 mg 10/14/22 23:15 10/15/22 11:03 Meloxicam 7.5 Mg Tablet PO 7.5 mg DAILY PRN Administration JOINT PAIN Morphine Sulfate 2 mg 10/14/22 22:27 Morphine Sulfate 2 Mg/Ml Syringe IVP Q6H PRN MODERATE PAIN Ondansetron HCl 4 mg 10/14/22 22:29 Ondansetron Hcl/Pf 4 Mg/2 Ml Sdv IVP Q6H PRN Nausea / Vomiting Pantoprazole Sodium 40 mg 10/15/22 09:00 10/16/22 05:34 Pantoprazole Sodium 40 Mg Tablet.Dr PO 40 mg QDAC GIOVANNY Administration Potassium Chloride 20 meq 10/15/22 09:00 10/15/22 19:00 Potassium Chloride 20 Meq Tab PO 20 meq BIDWM GIOVANNY Administration Sertraline HCl 100 mg 10/15/22 09:00 10/15/22 09:39 Sertraline Hcl 50 Mg Tablet PO 100 mg DAILY GIOVANNY Administration Sertraline HCl 50 mg 10/15/22 09:00 10/15/22 09:40 Sertraline Hcl 50 Mg Tablet PO 50 mg DAILY GIOVANNY Administration Simvastatin 20 mg 10/15/22 21:00 10/15/22 20:31 Simvastatin 10 Mg Tablet PO 20 mg BEDTIME GIOVANNY Administration Sodium Chloride 1 syr 10/15/22 13:00 10/16/22 05:34 0.9% Sodium Chloride 10 Ml Disp.Syrin IVF 1 syr Q8HR GIOVANNY Administration Trazodone HCl 25 mg 10/14/22 23:30 10/15/22 20:31 Trazodone Hcl 50 Mg Tablet PO 25 mg BEDTIME PRN Administration Insomnia Plan Plan: 1. Intractable Pain in setting of R impacted surgical neck fracture and C2 fracture - morphine Q6H prn and flexeril TID prn, will adjust if needed, family denied surgical intervention and refuses immobilization devices- comfort measures only, case management working on chcf placement, PT/OT to eval 2. Hypokalemia - improving, replace and monitor 3. Hypertension - chronic, stable, continue home medications 4. Hyperlipidemia - chronic, continue home medications 5. Hypothyroidism - chronic, stable, continue home medications 6. GERD - chronic, continue home medications Application submitted and accepted at [facility]. Will be able to take patient Wednesday 10/18. Review Statement Review Statement: I have personally discussed and reviewed the patient's visit/currently labs/imaging/decision making with Dr. Aguilar, my supervising attending. Greater that 50 minutes spent with patient, 50% of the time spent with this patient was devoted to counseling and coordination of care.
[2022-10-16] MEDS: ZOLOFT PO SCH ×2 (09:48→09:50)
[2022-10-16] MEDS: K-DUR PO SCH ×2 (09:49→16:42)
[2022-10-16] MEDS: HYDROCHLOROTHIAZIDE PO SCH (09:49)
[2022-10-16] MEDS: BUSPAR PO SCH ×3 (09:50→20:15)
[2022-10-16] MEDS: CLARITIN PO SCH (09:50)
[2022-10-16] MEDS: DESYREL PO PRN (20:15)
[2022-10-16] MEDS: ZOCOR PO SCH (20:15)
[2022-10-17 04:55] LABS: BASOPHILS % (AUTO) 0.2 % (0.0-3.0); EOSINOPHILS # (AUTO) 0.1 K/ul (0.0-0.7); EOSINOPHILS % (AUTO) 1.2 % (0.0-7.0); HEMATOCRIT 27.3 % (37.0-47.0); HEMOGLOBIN 9.2 g/dl (12.0-16.0); IMMATURE GRANULOCYTE % (AUTO) 0.7 % (0.0-5.0); LYMPHOCYTES # (AUTO) 0.5 K/uL (0.60-3.4); MEAN CORPUSCULAR HGB CONC 33.7 (31.8-35.4); MEAN CORPUSCULAR VOLUME 88.9 fl (81.0-99.0); MONOCYTES # (AUTO) 0.3 K/uL (0.4-2.0); MONOCYTES % (AUTO) 5.3 (0-10); NEUTROPHILS # (AUTO) 4.9 K/ul (2.0-6.9); NEUTROPHILS % (AUTO) 83.6 % (42.2-75.2); PLATELET COUNT 288 10^3/uL (140-440); RDW COEFFICIENT OF VARIATION 13.2 % (11.6-14.8); RED BLOOD COUNT 3.07 10^6/ul (4.20-5.40)
[2022-10-17 05:04] LABS: ALANINE AMINOTRANSFERASE 16.2 U/L (0-35); ALBUMIN 2.97 g/dL (3.5-5.0); ALKALINE PHOSPHATASE 101.2 U/L (53-141); ASPARTATE AMINO TRANSFERASE 22.5 U/L (14-36); BILIRUBIN,TOTAL 0.5 mg/dL (0.2-1.3); BLOOD UREA NITROGEN 14.2 mg/dL (7-17); CALCIUM 7.53 mg/dL (8.4-10.2); CARBON DIOXIDE 26.4 mmol/L (22-30.0); CHLORIDE 103.7 mmol/L (98-107); CREATININE 0.54 mg/dL (0.60-1.30); GLUCOSE 113.1 mg/dL (74-106); POTASSIUM 3.49 mmol/L (3.5-5.1); SODIUM 132.6 mmol/L (134.5-145); TOTAL PROTEIN 5.65 g/dL (6.3-8.2)
[2022-10-17] MEDS: SYNTHROID PO SCH (05:37)
[2022-10-17] MEDS: PROTONIX PO SCH (05:37)
[2022-10-17] MEDS: K-DUR PO SCH ×2 (08:40→17:01)
[2022-10-17] MEDS: HYDROCHLOROTHIAZIDE PO SCH (08:40)
[2022-10-17] MEDS: ZOLOFT PO SCH ×2 (08:40)
[2022-10-17] MEDS: BUSPAR PO SCH ×3 (08:40→20:08)
[2022-10-17] MEDS: TYLENOL PO PRN ×2 (08:40→15:31)
[2022-10-17] MEDS: CLARITIN PO SCH (08:40)
[2022-10-17] MEDS ORDERED: NORCO 7.5-325 PO PRN (09:01)
--- NOTE | 2022-10-17 09:01 | PCM.PROG ---
Date/Time Seen Date Seen by Provider: 10/17/22 Time Seen by Provider: 09:15 Provider Provider: CHRISTEL ALCARAZ[facility] Chief Complaint Chief Complaint: HYPOKALEMIA Subjective Subjective: No events throughout night. Pain improving with current regimen. Objective Appearance: Positive Well-appearing and No Apparent Distress Chest/Lungs: Positive Symmetrical With Equal Breath Sounds, Clear to Auscultation Bilaterally and Good Air Movement all 4 Lung Draper Heart: Positive RRR and Pulses Normal GI/: Positive Soft, Nontender, Bowel Sounds Normal, No Distention and No Organomegaly Musculoskeletal: Positive Not Examined Neurological: Positive Motor intact, Reflexes Intact, Alert and Disorinted Additional Findings: Scattered bruising of different stages to RUE Vital Signs Vital Signs: Vital Signs: Last 24 Hours 10/16/22 10:00 10/16/22 14:00 10/16/22 18:00 Temperature 96.8 F L 97.7 F 98.2 F Temperature Source Temporal Artery Scan Temporal Artery Scan Temporal Artery Scan Pulse Rate 67 88 96 Respiratory Rate 21 H 19 25 H Blood Pressure 134/57 L 115/47 L 123/64 Blood Pressure Mean 82 69 83 Blood Pressure Location Left Arm Left Arm Left Arm Blood Pressure Position Supine Supine Sitting O2 Sat by Pulse Oximetry 98 94 L 96 Oxygen Delivery Method Room Air Room Air Room Air Telemetry Type Telemetry Monitoring Telemetry Heart Rate EKG VT Interval EKG QRS Interval Telemetry Strip Reading 10/16/22 13:00 10/16/22 19:00 10/16/22 21:31 Temperature 98.7 F Temperature Source Oral Pulse Rate 87 Respiratory Rate 20 Blood Pressure 154/64 H Blood Pressure Mean 94 Blood Pressure Location Left Arm Blood Pressure Position Supine O2 Sat by Pulse Oximetry 95 Oxygen Delivery Method Room Air Telemetry Type Bedside Monitor Bedside Monitor Telemetry Monitoring Continues Continues Telemetry Heart Rate 91 97 EKG VT Interval 0.13 0.14 EKG QRS Interval 0.08 0.02 L Telemetry Strip Reading SR SR 10/17/22 01:00 10/17/22 01:42 10/17/22 05:42 Temperature 98.1 F Temperature Source Oral Pulse Rate 81 77 Respiratory Rate 20 18 Blood Pressure 141/57 H 148/59 H Blood Pressure Mean 85 88 Blood Pressure Location Left Arm Left Arm Blood Pressure Position Supine Supine O2 Sat by Pulse Oximetry 95 Oxygen Delivery Method Room Air Room Air Telemetry Type Bedside Monitor Telemetry Monitoring Continues Telemetry Heart Rate 85 EKG VT Interval 0.18 EKG QRS Interval 0.04 L Telemetry Strip Reading SR 10/17/22 07:00 10/17/22 07:49 Temperature Temperature Source Pulse Rate Respiratory Rate 16 Blood Pressure Blood Pressure Mean Blood Pressure Location Blood Pressure Position O2 Sat by Pulse Oximetry Oxygen Delivery Method Room Air Telemetry Type Bedside Monitor Telemetry Monitoring Continues Telemetry Heart Rate 70 EKG VT Interval 0.16 EKG QRS Interval 0.08 Telemetry Strip Reading SR Lab Results Lab Results: Lab Results: Last 24 Hours 10/17/22 04:47 WBC 5.80 RBC 3.07 L Hgb 9.2 L Hct 27.3 L MCV 88.9 MCH 30.0 MCHC 33.7 RDW Coeff of Valdemar 13.2 Plt Count 288 Immature Gran % (Auto) 0.7 Neut % (Auto) 83.6 H Lymph % (Auto) 9.0 L [place] % (Auto) 5.3 Eos % (Auto) 1.2 Baso % (Auto) 0.2 Neut # (Auto) 4.9 Lymph # (Auto) 0.5 L [place] # (Auto) 0.3 L Eos # (Auto) 0.1 Baso # (Auto) 0.0 Immature Gran # (Auto) 0.0 Sodium 132.6 L Potassium 3.49 L Chloride 103.7 Carbon Dioxide 26.4 Anion Gap 5.99 BUN 14.2 Creatinine 0.54 L Estimated GFR (MDRD) 109.00 BUN/Creatinine Ratio 26.29 Glucose 113.1 H Calcium 7.53 L Total Bilirubin 0.50 AST 22.5 ALT 16.2 Alkaline Phosphatase 101.2 Total Protein 5.65 L Albumin 2.97 L Globulin 2.68 Albumin/Globulin Ratio 1.10 Additional Comments Additional Comments: I have independently reviewed and interpreted the labs/EKGs/imaging ordered during this hospital stay. I have reviewed outside records that are available in our EMR that pertain to medical stay including imaging/notes/labs from previous visits. Active Medications Active Medications: Medications Generic Name Dose Route Start Last Admin Trade Name Freq PRN Reason Stop Dose Admin Acetaminophen 650 mg 10/14/22 22:27 10/17/22 08:40 Acetaminophen 325 Mg Tablet PO 650 mg Q4H PRN Administration Mild Pain Buspirone HCl 10 mg 10/15/22 09:00 10/17/22 08:40 Buspirone Hcl 10 Mg Tablet PO 10 mg TID GIOVANNY Administration Cyclobenzaprine HCl 5 mg 10/14/22 22:27 Cyclobenzaprine Hcl 10 Mg Tablet PO TID PRN Spasms Ergocalciferol 50,000 unit 10/14/22 23:30 Ergocalciferol (Vitamin D2) 50,000 Unit Capsule PO QWEEK GIOVANNY Hydrochlorothiazide 12.5 mg 10/15/22 09:00 10/17/22 08:40 Hydrochlorothiazide 25 Mg Tablet PO 12.5 mg QAM GIOVANNY Administration Levothyroxine Sodium 88 mcg 10/15/22 06:30 10/17/22 05:37 Levothyroxine Sodium 88 Mcg Tablet PO 88 mcg 0630 GIOVANNY Administration Loratadine 10 mg 10/15/22 13:00 10/17/22 08:40 Loratadine 10 Mg Tablet PO 10 mg DAILY GIOVANNY Administration Meloxicam 7.5 mg 10/14/22 23:15 10/15/22 11:03 Meloxicam 7.5 Mg Tablet PO 7.5 mg DAILY PRN Administration JOINT PAIN Morphine Sulfate 2 mg 10/14/22 22:27 Morphine Sulfate 2 Mg/Ml Syringe IVP Q6H PRN MODERATE PAIN Ondansetron HCl 4 mg 10/14/22 22:29 Ondansetron Hcl/Pf 4 Mg/2 Ml Sdv IVP Q6H PRN Nausea / Vomiting Pantoprazole Sodium 40 mg 10/15/22 09:00 10/17/22 05:37 Pantoprazole Sodium 40 Mg Tablet.Dr PO 40 mg QDAC [facility] Administration Potassium Chloride 20 meq 10/15/22 09:00 10/17/22 08:40 Potassium Chloride 20 Meq Tab PO 20 meq BIDWM [facility] Administration Sertraline HCl 100 mg 10/15/22 09:00 10/17/22 08:40 Sertraline Hcl 50 Mg Tablet PO 100 mg DAILY GIOVANNY Administration Sertraline HCl 50 mg 10/15/22 09:00 10/17/22 08:40 Sertraline Hcl 50 Mg Tablet PO 50 mg DAILY GIOVANNY Administration Simvastatin 20 mg 10/15/22 21:00 10/16/22 20:15 Simvastatin 10 Mg Tablet PO 20 mg BEDTIME GIOVANNY Administration Sodium Chloride 1 syr 10/15/22 13:00 10/17/22 05:37 0.9% Sodium Chloride 10 Ml Disp.Syrin IVF 1 syr Q8HR GIOVANNY Administration Trazodone HCl 25 mg 10/14/22 23:30 10/16/22 20:15 Trazodone Hcl 50 Mg Tablet PO 25 mg BEDTIME PRN Administration Insomnia Plan Plan: 1. Intractable Pain in setting of R impacted surgical neck fracture and C2 fracture - transition from morphine to norco prn starting today and flexeril TID prn, will adjust if needed, family denied surgical intervention and refuses immobilization devices- comfort measures only, case management working on n ursing home placement, PT/OT to eval 2. Hypokalemia - chronic, improving, replace and monitor 3. Hypertension - chronic, stable, continue home medications 4. Hyperlipidemia - chronic, continue home medications 5. Hypothyroidism - chronic, stable, continue home medications 6. GERD - chronic, continue home medications Application submitted and accepted at [facility]. Will be able to take patient Wednesday 10/18. Review Statement Review Statement: I have personally discussed and reviewed the patient's visit/currently labs/imaging/decision making with Dr. Aguilar, my supervising attending. Greater that 50 minutes spent with patient, 50% of the time spent with this patient was devoted to counseling and coordination of care.
[2022-10-17] MEDS ORDERED: K-DUR PO ONE (09:02)
--- NOTE | 2022-10-17 13:38 | RS.OTINEVL ---
Subjective Patient information Date of Evaluation: 10/17/22 Date of Arrival on Unit: 10/14/22 Admitted From:: Emergency Dept Diagnosis: Hypokalemia PRECAUTIONS: Falls, Dementia Usual Living Arrangement: With Spouse Home Environment: House Medical History: Hypertension and Dementia Medical History Comments:: GERD, Hypothyroidism, recent R wrist fracture. Subjective Information/ Patient Comments:: "I want to see my dad before he passes. Are you going to help me get dressed? Where are my clothes? Who is going to take me? Where is Chela? Level of function Prior to this admission, the patient could do the following:: Partially Dependent Ambulation Current Level of Function: Partially Dependent Current Equipment Used at Home: Nothing Pain Assessment Pain Pain Score: 8 Side: right Pain Location Body Site: Shoulder Pain Aggravating Factors: Changing Position Pain Alleviating Factors: Position Change and Sitting Interventions Objective Patient Orientation: Person Observation: Pt has full AROM of the LUE. Pt has full AROM of BLE. Pt is able to follow simple commands. Pt I with flexing her ankles, knees, and LUE. Interventions ROM Right Upper Extremity AROM: Marked limitation Left Upper Extremity AROM: WFL's Strength Right Upper Extremity: Severe Weakness Left Upper Extremity: Mild Weakness Sensation Right Upper Extremity: Intact/Normal Left Upper Extremity: Intact/Normal Balance Comments Balance Assessment Comments: Pt not wearing cervical shower collar for the C2 fracture. ADL Skills Grooming Grooming: Min Assist Grooming Set-up: Sitting Bathing Bathing UE: Min Assist Bathing LE: Min Assist Bathing Set-up: Bedside Dressing Dressing UE: Max Assist and 1 person assist Dressing LE: Min Assist Toilet Management Toilet Hygiene: Max Assist Toilet Clothing Management: Max Assist Functional Mobility Bed Mobility Rolling R/L: Max Assist Scooting: Max Assist Supine to Sit: Max Assist Sit to Supine: Max Assist Transfers Sit to Stand: Not Tested Stand to Sit: Not Tested Stand Pivot Transfers: Not Tested Ambulation Assistive Device Used: No Assistive Device Assistance needed with Ambulation: Not Tested Safety Awareness Safety Awareness: Good LORI INDEX SCORE: . Additional Treatment Performed Time with patient Length of Evaluation: 20 Total treatment time: 20 Activities Do you enjoy playing games?: No Would you be interested in leaving your room for activities?: No Would you enjoy group activities?: No Do you have difficulty with your vision?: Yes Patient Interests:: Watching Television Comments:: Pt is very confused. Pt has dementia and fixates on seeing her father. Patient Education Patient Education: Body/Joint mechanics, Home Safety and Education of Plan of Care Teaching Recipient: Patient Teaching Methods: Teach Back Method Used and Demonstration Assessment Problem List:: Decreased level of function, Requires training/education, Decreased safety/Risk of falls, Weakness, Pain limits previous level of function and Cognitive status limits abilities Rehab Potential: Good Further Therapy Indicated?: Yes Candidate for Swing Bed for Therapy Services?: No Comments: Pt is very confused and talks in circles. Evaluation Complexity: HISTORY: Medium, EXAM OF BODY SYSTEMS: Medium and CLINICAL DECISION MAKING: Medium Patient's Goal(s): For RUE to stop hurting. Short Term Goals Goals GOAL 1: No goals at this time. [facility] Developer Goals GOAL 1: No goals at this time. Plan Other:: Pt to discharge to [facility] for therapy tomorrow. Anticipated Discharge Destination: [facility] Facility Treatment Diagnosis (ICD 10 Codes): Weakness R53.1 Has the Physician been added for Co-signature?: Yes
--- NOTE | 2022-10-17 13:49 | RS.PTINEVL ---
Subjective Patient information Date of Evaluation: 10/17/22 Date of Arrival on Unit: 10/14/22 Admitted From:: Home Diagnosis: s/p falls, R impacted humeral surgical neck fx, C2 fx Usual Living Arrangement: With Spouse Living Arrangement Comments: lives with and daughters assist with care. pt has required 24 hour care for several years. Home Environment: House Medical History: Hypertension, Dementia (alzheimers) and Arthritis Medical History Comments:: osteoporosis, GERD, hypothyroidism, hypokalemia, anxiety, h/o pelvic fx, recent R wrist fx (07/2022) LATEX ALLERGY?: No Surgical History: Cholecystectomy Medications: see chart Subjective Information/ Patient Comments:: Nursing reports family does not want surgery for fx and they do not want pt to be made to wear cervical collar or sling because they upset her. Family is hoping for short term longterm placement so they can take a break. pt states "I am wanting to go see my dad. I need to get dressed." pt was oriented to self only. Unable to follow commands. Level of function Prior to this admission, the patient could do the following:: Partially Dependent Ambulation Abilities prior to this admission: Required 24 hour supervision Current Level of Function: Dependent Current Equipment Used at Home: None Pain Assessement Location R upper ext : Effects of Pain: pt cries out with any touch or movement to RUE or hand Interventions Objective Patient Orientation: Person Current Interventions: Oxygen Observation: pt with pitting edema R hand, bruising R UE shld to fingers. Range of Motion ROM Right Upper Extremity AROM: Marked limitation (due to humeral fx ) Left Upper Extremity AROM: WFL's Right Lower Extremity AROM: WFL's Left Lower Extremity AROM: WFL's Muscle Strength Muscle Strength Right Upper Extremity: Severe Weakness (not tested due to fx ) Left Upper Extremity: Mild Weakness Right Lower Extremity: Mild Weakness Left Lower Extremity: Mild Weakness Comments:: Unable to fully MMT due to pt dementia, unable to follow commands and was focused on going to see her dad. Sensation Sensation Comments: difficult to assess due to dementia Palpation Palpation Findings: Tenderness (to palpation RUE ) Balance Comments Balance Assessment Comments: n/t due to Cervical fx and pt/family refuse cervical collar Functional Mobility Bed Mobility Comments:: n/t due to pt with C2 fx and pt/family refuse cervical collar LORI INDEX SCORE: n/a Ambulation Ambulation Ambulation Comments: n/t due to pt with C2 fx and pt/family refuse cervical collar Treatment time Time with patient Length of Evaluation: 19 Total treatment time: 27 Patient Education Education Patient Education: Activity Modification Teaching Recipient: Patient Teaching Methods: Discussion Comments: pt unable to follow any commands and unable to redirect to task due to dementia Assessment Assessment Problem List:: Decreased level of function, Decreased safety/Risk of falls, Weakness and Pain limits previous level of function Rehab Potential: Poor Further Therapy Indicated?: No Candidate for Swing Bed for Therapy Services?: Feel pt is not a candidate for swing bed due to cognitive status. Evaluation Complexity: HISTORY: Medium, EXAM OF BODY SYSTEMS: Medium, CLINICAL PRESENTATION: Medium and CLINICAL DECISION MAKING: Medium Patient's Goal(s): Family goal is for pt to go to the longterm. Plan Other:: eval only Frequency of Treatment: eval only Duration of Treatment: One Time Treatment Anticipated Discharge Destination: [facility] Care Facility Treatment Diagnosis (ICD 10 Codes): fx R humeral surgical neck fx, C2 fx, h/o falls Has the Physician been added for Co-signature?: Yes
[2022-10-17] MEDS: DESYREL PO PRN (20:08)
[2022-10-17] MEDS: ZOCOR PO SCH (20:08)
[2022-10-18 05:10] LABS: BASOPHILS % (AUTO) 0.3 % (0.0-3.0); EOSINOPHILS # (AUTO) 0.1 K/ul (0.0-0.7); HEMATOCRIT 26.1 % (37.0-47.0); HEMOGLOBIN 8.8 g/dl (12.0-16.0); IMMATURE GRANULOCYTE # (AUTO) 0.1 (0.0-1.0); IMMATURE GRANULOCYTE % (AUTO) 1.3 % (0.0-5.0); LYMPHOCYTES # (AUTO) 0.7 K/uL (0.60-3.4); LYMPHOCYTES % (AUTO) 9.6 (10.0-50.0); MEAN CORPUSCULAR HEMOGLOBIN 29.8 pg (27.0-31.0); MEAN CORPUSCULAR HGB CONC 33.7 (31.8-35.4); MEAN CORPUSCULAR VOLUME 88.5 fl (81.0-99.0); MONOCYTES # (AUTO) 0.4 K/uL (0.4-2.0); MONOCYTES % (AUTO) 5.9 (0-10); NEUTROPHILS # (AUTO) 5.7 K/ul (2.0-6.9); NEUTROPHILS % (AUTO) 80.9 % (42.2-75.2); PLATELET COUNT 311 10^3/uL (140-440); RED BLOOD COUNT 2.95 10^6/ul (4.20-5.40); WHITE BLOOD COUNT 7.09 K/ul (4.6-10.2)
[2022-10-18 05:22] LABS: ALANINE AMINOTRANSFERASE 15.8 U/L (0-35); ALBUMIN 2.86 g/dL (3.5-5.0); ALKALINE PHOSPHATASE 110.2 U/L (53-141); ASPARTATE AMINO TRANSFERASE 21.5 U/L (14-36); BILIRUBIN,TOTAL 0.47 mg/dL (0.2-1.3); BLOOD UREA NITROGEN 9.1 mg/dL (7-17); CALCIUM 7.65 mg/dL (8.4-10.2); CARBON DIOXIDE 27.3 mmol/L (22-30.0); CHLORIDE 102.4 mmol/L (98-107); CREATININE 0.55 mg/dL (0.60-1.30); GLUCOSE 101.2 mg/dL (74-106); POTASSIUM 3.63 mmol/L (3.5-5.1); SODIUM 131.4 mmol/L (134.5-145); TOTAL PROTEIN 5.6 g/dL (6.3-8.2)
[2022-10-18] MEDS: PROTONIX PO SCH (05:41)
[2022-10-18] MEDS: SYNTHROID PO SCH (05:41)
[2022-10-18 05:58] VITALS: BP 140/73; PULSE 75; RESP 18; TEMP 97.1
[2022-10-18] MEDS: ZOLOFT PO SCH ×2 (08:09→08:10)
[2022-10-18] MEDS: K-DUR PO SCH (08:10)
[2022-10-18] MEDS: CLARITIN PO SCH (08:10)
[2022-10-18] MEDS: BUSPAR PO SCH (08:10)
[2022-10-18] MEDS: HYDROCHLOROTHIAZIDE PO SCH (08:10)
--- NOTE | 2022-10-18 08:40 | DCSUM ---
Admission Date Admission Date: 10/14/22 Discharge Date Discharge Date: 10/18/22 Admission Diagnosis Admission Diagnosis: Intractable Pain Discharge Diagnosis Discharge Diagnosis: Intractable Pain Hospital Provider Hospital Provider: CHRISTEL ALCARAZ, [facility] Primary Care Physician Primary Care Physician: ROMIE WALKER APRN Summary of History and Physical Summary of History and Physical: 76 yo female with pmh of dementia presented to the ER via EMS from home following a fall. Daughter reports that patient has been falling frequently over the last couple weeks. The last fall was over the weekend in the middle of the night and the patient was found in the floor. She was not brought to the hospital at that time and was not complaining of pain. Over the last couple days, the patient's pain has worsening and bruising developed to the R arm and shoulder. She was found to have a R arm impacted surgical neck fracture as well as a C2 fracture. Daughter reported to ER provider that patient is not a surgical candidate and did not wish for anything to be done. She is a DNR/DNI. Daughter also was instructed that the arm needed splinted and the neck required a C-collar. She denied use of both devices due to comfort of the patient and inability to tolerate the devices due to her dementia. Daughter was explained the risks and she is understanding. At this time, daughter is requesting half-way placement due to lack of ability to care for the patient safely at home. Due to pmh of dementia, unable to obtain HPI. Patient does voice complaints of "hurting all over" Hospital Course Subjective: Over course of stay, patient has been receiving morphine and flexeril prn for intractable pain due to R humeral impacted surgical neck fracture and C2 fracture. Transitioned to PO norco yesterday. Pain is being tolerated well at this time. PT/OT eval patient for longterm home. Patient is able to follow some basic commands but not complex due to dementia. She initially was hypokalemic which was replaced and is back to normal level. Takes daily KCL. All home medications were continued for chronic conditions. Patient was accepted for admission to [facility] Appearance: Pleasant, No Apparent Distress and Alert HEENT: MMM CVS: No Murmur Abdomen: Soft and Non-Tender Respiratory: No Dyspnea Extremities: No Edema Vital Signs: Most Recent Vital Signs Temperature 97.1 F L 10/18/22 05:57 Temperature Source Temporal Artery Scan 10/18/22 05:57 Temperature Source Infrared 10/14/22 17:26 Pulse Rate 75 10/18/22 05:57 Respiratory Rate 18 10/18/22 05:57 Blood Pressure 140/73 10/18/22 05:57 Blood Pressure Mean 95 10/18/22 05:57 Blood Pressure Right Arm 144/70 10/14/22 20:53 Blood Pressure Location Left Arm 10/18/22 05:57 Blood Pressure Position Supine 10/18/22 02:00 O2 Sat by Pulse Oximetry 96 10/18/22 05:57 Oxygen Delivery Method Room Air 10/18/22 05:57 Height 5 ft 5 in 10/14/22 20:53 Weight 143 lb 1.6 oz 10/14/22 20:53 Telemetry Type Bedside Monitor 10/17/22 13:00 Telemetry Monitoring Continues 10/17/22 13:00 Telemetry Heart Rate 86 10/17/22 13:00 EKG OK Interval 0.14 10/17/22 13:00 EKG QRS Interval 0.06 10/17/22 13:00 Telemetry Strip Reading Patient refused 10/17/22 19:00 Lab Results Last 24 Hours: 10/18/22 04:40 WBC 7.09 RBC 2.95 L Hgb 8.8 L Hct 26.1 L MCV 88.5 MCH 29.8 MCHC 33.7 RDW Coeff of Valdemar 13.0 Plt Count 311 Immature Gran % (Auto) 1.3 Neut % (Auto) 80.9 H Lymph % (Auto) 9.6 L [place] % (Auto) 5.9 Eos % (Auto) 2.0 Baso % (Auto) 0.3 Neut # (Auto) 5.7 Lymph # (Auto) 0.7 [place] # (Auto) 0.4 Eos # (Auto) 0.1 Baso # (Auto) 0.0 Immature Gran # (Auto) 0.1 Sodium 131.4 L Potassium 3.63 Chloride 102.4 Carbon Dioxide 27.3 Anion Gap 5.33 BUN 9.1 Creatinine 0.55 L Estimated GFR (MDRD) 107.00 BUN/Creatinine Ratio 16.54 Glucose 101.2 Calcium 7.65 L Total Bilirubin 0.47 AST 21.5 ALT 15.8 Alkaline Phosphatase 110.2 Total Protein 5.60 L Albumin 2.86 L Globulin 2.74 Albumin/Globulin Ratio 1.04 Discharge Instructions Discharge Planning: Discharge Planning > 40 minutes If patient is discharged with left ventricular systolic dysfunction: na Discharged with a beta sunil? [] If no, why not? [] na Discharged with an rhona/arb? [] If no, why not? [] na Activity as tolerated Regular diet PT/OT Follow-up with doctor at [facility] next week. Discharge Medications: Medications at Discharge (Home Meds & RX) blood pressure monitor #1 ea 04/27/20 ibuprofen 200 mg tablet 200 mg PO Q6H PRN Pain 07/22/21 cetirizine 10 mg capsule (Zyrtec) 10 mg PO QDAY #90 caps 02/03/22 buspirone 10 mg tablet See Rx Instructions .Route .COMPLEX #90 tabs 06/23/22 levothyroxine 88 mcg tablet See Rx Instructions .Route .COMPLEX #90 tabs 06/23/22 meloxicam 7.5 mg tablet 7.5 mg PO QDAY PRN arthritis #90 tabs 06/23/22 ergocalciferol (vitamin D2) 1,250 mcg (50,000 unit) capsule 1,250 mcg PO QWEEK vitamin D deficiency 1 month #5 caps 10/07/22 hydrochlorothiazide 25 mg tablet 12.5 mg PO QAM 90 days #45 tabs 10/07/22 pantoprazole 40 mg tablet,delayed release See Rx Instructions .Route .COMPLEX #90 tabs 10/07/22 potassium chloride 20 mEq tablet,extended release 20 meq PO BID 90 days #180 tabs 10/07/22 sertraline 100 mg tablet (Zoloft) 100 mg PO QDAY #90 tabs 10/07/22 sertraline 50 mg tablet (Zoloft) 50 mg PO QDAY #90 tabs 10/07/22 simvastatin 20 mg tablet See Rx Instructions .Route .COMPLEX #90 tabs 10/07/22 trazodone 50 mg tablet 25 mg PO QHS PRN insomnia 30 days #15 tabs 10/07/22 Discharge Plan Discharge Activity Restrictions/Additional Instructions: Activity as tolerated Regular diet PT/OT Kemp 7.5/325 Q6H PRN Flexeril 10 mg TID PRN Follow-up with [facility] provider next week Instructions: Arm Fracture in Adults (GEN), Hypokalemia (GEN), Cervical Fracture (GEN) Patient Disposition: TRANSFER SNF Prescriptions: New cyclobenzaprine 10 mg Tablet 5 mg PO TID PRN (Reason: spasms) Qty: 30 0RF hydrocodone-acetaminophen 7.5-325 mg Tablet 1 tab PO Q6HR PRN (Reason: moderate pain (scale score 5-6)) Qty: 30 0RF Continued Zyrtec 10 mg capsule 10 mg PO QDAY Qty: 90 1RF (DME) blood pressure monitor Kit See Rx Instructions .ROUTE .MEDSUPPLY Qty: 1 0RF Rx Instructions: As directed ibuprofen 200 mg tablet 200 mg PO Q6H PRN (Reason: Pain) buspirone 10 mg tablet See Rx Instructions .ROUTE .COMPLEX Qty: 90 2RF Dose Instruction: TAKE 1 TABLET BY MOUTH THREE TIMES DAILY Rx Instructions: TAKE 1 TABLET BY MOUTH THREE TIMES DAILY levothyroxine 88 mcg tablet See Rx Instructions .ROUTE .COMPLEX Qty: 90 1RF Dose Instruction: TAKE 1 TABLET BY MOUTH DAILY Rx Instructions: TAKE 1 TABLET BY MOUTH DAILY meloxicam 7.5 mg tablet 7.5 mg PO QDAY PRN (Reason: arthritis ) Qty: 90 1RF Rx Instructions: do not take with other nsaids ergocalciferol (vitamin D2) 1,250 mcg (50,000 unit) capsule 1,250 mcg PO QWEEK 30 Days Qty: 5 5RF Rx Instructions: take once monthly hydrochlorothiazide 25 mg tablet 12.5 mg PO QAM 90 Days Qty: 45 2RF pantoprazole 40 mg tablet,delayed release (DR/EC) See Rx Instructions .ROUTE .COMPLEX Qty: 90 1RF Dose Instruction: TAKE 1 TABLET BY MOUTH DAILY Rx Instructions: TAKE 1 TABLET BY MOUTH DAILY sertraline [Zoloft] 50 mg tablet 50 mg PO QDAY Qty: 90 0RF Rx Instructions: add on to the 100 mg dosage to make 150 mg dosage to take daily potassium chloride 20 mEq tablet extended release 20 meq PO BID 90 Days Qty: 180 1RF sertraline [Zoloft] 100 mg tablet 100 mg PO QDAY Qty: 90 1RF Rx Instructions: add on to the 100 mg dosage to make 150 mg dosage to take daily simvastatin 20 mg tablet See Rx Instructions .ROUTE .COMPLEX Qty: 90 1RF Dose Instruction: TAKE 1 TABLET BY MOUTH DAILY Rx Instructions: TAKE 1 TABLET BY MOUTH DAILY trazodone 50 mg tablet 25 mg PO QHS PRN (Reason: insomnia) 30 Days Qty: 15 2RF Rx Instructions: take 25 mg po nightly prn insomnia Did you review [place] [employer] for ALL controlled substances?: No Discussed opioids are addictive and Narcan is available by prescription or from pharmacy.: Yes Condition: Fair
== END 2022-10-18 10:00 | DRG 552 ==
LOC: SCU 17:22 → ED 17:22 → SCU 21:00
PROVIDERS: ADMIT Hospitalist; ATTEND Nurse Practitioner Family
DX: E78.5 Hyperlipidemia, unspecified; R52 Pain, unspecified; K21.9 Gastro-esophageal reflux disease without esophagitis; E87.6 Hypokalemia; I10 Essential (primary) hypertension; W19.XXXA Unspecified fall, initial encounter; S12.101A Unspecified nondisplaced fracture of second cervical vertebra, initial encounter for closed fracture; S42.351A Displaced comminuted fracture of shaft of humerus, right arm, initial encounter for closed fracture; R41.82 Altered mental status, unspecified; E03.9 Hypothyroidism, unspecified; F03.90 Unspecified dementia, unspecified severity, without behavioral disturbance, psychotic disturbance, mood disturbance, and anxiety